=== PATIENT | male | born 1940 | race Caucasian/White ===

== ENCOUNTER 2019-11-14 10:40 | Inpatient (IN) | payer MEDICARE, OTHER ==
[~2019-11-14] VITALS: Ht 185.4 cm; Wt 89.5 kg
[2019-11-14] MEDS ORDERED: Aspir 8181 MG PO (11:34)
[2019-11-14 11:35] LABS: BASOPHILS ABSOLUTE AUTO 0.01 K/mm3 (0.00-0.23); BASOPHILS PERCENT AUTO 0 % (0-2); EOSINOPHILS PERCENT AUTO 0 % (0-6); Hematocrit 44.7 % (37.0-53.0); Hemoglobin 14.8 g/dL (13.5-17.5); IMMATURE GRAN ABSOLUTE AUTO 0.05 K/mm3 (0.00-0.10); IMMATURE GRAN PERCENT AUTO 1 % (0-1); LYMPHOCYTES ABSOLUTE AUTO 0.72 K/mm3 (0.84-5.20); LYMPHOCYTES PERCENT AUTO 10 % (21-46); MONOCYTES ABSOLUTE AUTO 0.37 K/mm3 (0.16-1.47); MONOCYTES PERCENT AUTO 5 % (4-13); Mean Corpuscular HGB 28.2 pg (26.0-34.0); Mean Corpuscular HGB Conc 33.1 g/dL (31.5-36.5); Mean Corpuscular Volume 85 fL (80-100); Mean Platelet Volume 9.4 fL (9.1-12.4); NEUTROPHILS ABSOLUTE AUTO 6.01 K/mm3 (1.96-9.15); NEUTROPHILS PERCENT AUTO 84 % (41-73); Platelet Count 203 K/mm3 (150-400); RDW Coefficient Variation 12.7 % (11.7-14.2); RDW Standard Deviation 39.8 fL (35.1-46.3); Red Blood Cell Count 5.24 M/mm3 (4.30-5.90); White Blood Cell Count 7.16 K/mm3 (4.00-11.30)
[2019-11-14] MEDS ORDERED: Isosorbide Mono30 MG PO (11:35)
[2019-11-14] MEDS ORDERED: METO50ER PO (11:35)
[2019-11-14] MEDS ORDERED: PANT40 PO (11:35)
[2019-11-14] MEDS ORDERED: LOSA50 PO (11:35)
[2019-11-14] MEDS ORDERED: AMLO5 PO (11:35)
[2019-11-14] MEDS ORDERED: EZET10 PO (11:35)
[2019-11-14 11:45] LABS: Alanine Aminotransfer (ALT/SGP 39 U/L (12-78); Albumin, Blood 2.9 g/dL (3.4-5.0); Albumin/Globulin Ratio 0.6 (0.8-1.8); Alk Phos 45 U/L (50-136); Anion Gap 8 mmol/L (6-16); Aspartate Aminotrans (AST/SGOT 53 U/L (12-37); Bilirubin, Total 0.9 mg/dL (0.1-1.0); Blood Urea Nitrogen 31 mg/dL (8-24); Bun/Creatinine Ratio 25.2 (12.0-20.0); CO2, Blood 22 mmol/L (21-32); Calcium, Blood 8.2 mg/dL (8.5-10.1); Chloride, Blood 106 mmol/L (98-108); Creatinine, Blood 1.23 mg/dL (0.60-1.20); Globulin, Blood 4.6 g/dL (2.2-4.0); Glomerular Filtration Rate >60 (60-); Glucose, Blood 116 mg/dL (70-99); Potassium, Blood 3.8 mmol/L (3.5-5.5); Sodium, Blood 136 mmol/L (136-145); Total Protein, Blood 7.5 g/dL (6.4-8.2)
[2019-11-14 11:52] LABS: International Normalized Ratio 1.07; Prothrombin Time Results 11.4 Sec (9.7-11.5)
[2019-11-14] MEDS ORDERED: FAMO20 PO (14:48)
[2019-11-14 16:19] LABS: PO2 Arterial 58.8 mmHg (80-100); pH Blood Arterial 7.44 (7.35-7.45)
--- NOTE | 2019-11-14 18:09 | NUR ---
PT ARRIVED FROM ER TO PCU 3 AT 1630. INITIALLY PT WAS ON 3LNC AND SPO2 WAS 90%. INCREASED O2 TO 4L VIA NC. PT IS A&0X4, FOLLOWS COMMANDS. PT REPORTS FEELING WEAK FOR ABOUT 10 DAYS AND HAVING AN EPISODE OF DIARRHEA THIS MORNING. PT ALSO C/O DECREASE IN APPT AND LOSS OF TASTE DURING ILLNESS. TELEMETRY SHOWS PT TO BE SINUS RHYTHM. OTHER VITALS ARE STABLE AT THIS TIME. ORIENTATION TO ROOM AND CALL LIGHT USE GONE OVER WITH PT. PT STATED UNDERSTANDING.
--- NOTE | 2019-11-14 22:30 | NUR ---
ASSUMED CARE OF PATIENT AT APPROXIMATELY 1915 FROM ANDRE Torres RN. PATIENT IN DROPLET ISOLATION FOR COVID POSISTIVE. PATIENT REPORTS TRAVELING FROM [place]. PATIENT ALERT AND ORIENTED X4; INDEPENDENT IN ROOM. PATIENT REPORTS FEELING WEAK, N/V/D AND POOR APPETITE FOR 8 DAYS. PATIENT REPORTS HE WAS ABLE TO EAT SOME DINNER; REQUESTED MORE JELLO; DRINKING FLUIDS. NSR ON TELE; OXYGEN SATURATION ABOVE 90% ON 5LPM VIA NC. PIV S/L. MED REC COMPLETED. WILL SEND URINE NEXT VOID; URINE IS CRISTINA COLORED. PATIENT CURRENTLY RESTING IN BED; CALL LIGHT IN REACH; BED IN LOWEST POSISTION; WILL CONTINUE TO MONITOR AND ASSESS UNTIL END OF SHIFT.
--- NOTE | 2019-11-14 23:35 | NUR ---
INCREASED O2 NEEDS; PATIENT OXYGEN SATURATION 87% ON 5LPM; SWITCHED TO HF NC AND INCREASED TO 10LPM. PATIENT DENIES SOB; UNABLE TO LAY IN PRONE POSISTION. WILL CONTINUE TO MONITOR AND ASSESS UNTIL END OF SHIFT.
--- NOTE | 2019-11-15 00:39 | NUR ---
ELEVATED D-DIMER AND INCREASED OXYGEN NEEDS; NOTIFIED DR. MARRERO; H&P STATES D-DIMER WAS PENDING AND NEED TO INCREASE LOVENOX DOSAGE; NO NEW ORDERS RECIEVED. ORDRES FOR AIRVO IF OXYGEN NEEDS INCREASE ABOVE 15LPM VIA HFNC; RT NOTIFIED.
--- NOTE | 2019-11-15 01:30 | NUR ---
DR. MARRERO INCREASED LOVENOX DOSAGE.
[2019-11-15 03:11] LABS: Source, Urine Clean Catch
[2019-11-15 03:14] LABS: Appearance, Urine Clear (Clear); Bilirubin, Urine Neg (Neg); Blood, Urine 2+ (Neg); Color, Urine Amber (P-Yellow); Glucose Qualitative, Urine Neg (Neg); Ketones, Urine 1+ (Neg); Leukocyte Esterase, Urine Neg (Neg); Nitrite, Urine Neg (Neg); Protein, Urine 3+ (Neg); Urobilinogen, Urine 2+ (Normal)
[2019-11-15 03:20] LABS: Amorphous Light (0-Heavy); Bacteria Few /hpf; Hyaline Casts 0-2 /lpf (0-2); Squamous Epithelial Cells Not Seen /hpf (Few); White Blood Cells, Urine 0-2 /hpf (0-5)
[2019-11-15 04:29] LABS: Hematocrit 40.6 % (37.0-53.0); Hemoglobin 13.8 g/dL (13.5-17.5); Mean Corpuscular HGB 28.6 pg (26.0-34.0); Mean Corpuscular Volume 84 fL (80-100); Mean Platelet Volume 9.1 fL (9.1-12.4); Platelet Count 214 K/mm3 (150-400); RDW Coefficient Variation 12.7 % (11.7-14.2); RDW Standard Deviation 38.9 fL (35.1-46.3); Red Blood Cell Count 4.82 M/mm3 (4.30-5.90); White Blood Cell Count 5.89 K/mm3 (4.00-11.30)
[2019-11-15 04:49] LABS: Anion Gap 5 mmol/L (6-16); Blood Urea Nitrogen 35 mg/dL (8-24); Bun/Creatinine Ratio 34.3 (12.0-20.0); CO2, Blood 23 mmol/L (21-32); Calcium, Blood 8.2 mg/dL (8.5-10.1); Chloride, Blood 107 mmol/L (98-108); Creatinine, Blood 1.02 mg/dL (0.60-1.20); Glomerular Filtration Rate >60 (60-); Glucose, Blood 138 mg/dL (70-99); Sodium, Blood 135 mmol/L (136-145)
--- NOTE | 2019-11-15 06:29 | NUR ---
NO ACUTE CHANGES TO REPORT. UA SENT. VSS. OXYGEN SATURATION ABOVE 90% ON 10LPM VIA HF NC.
[2019-11-15 16:31] LABS: Albumin, Blood 2.5 g/dL (3.4-5.0); Albumin/Globulin Ratio 0.6 (0.8-1.8); Bilirubin, Direct 0.2 mg/dL (0.0-0.3); Bilirubin, Indirect 0.4 mg/dL (0.1-0.7); Bilirubin, Total 0.6 mg/dL (0.1-1.0); Globulin, Blood 4.2 g/dL (2.2-4.0); Total Protein, Blood 6.7 g/dL (6.4-8.2)
--- NOTE | 2019-11-15 18:16 | NUR ---
SHIFT SUMMARY PT IS ALERT AND ORIENTED X4. TODAY PT REPORTS FEELING IMPROVED, NO LABORED BREATHING NOTED. AT THE BEGINNING OF SHIFT PT WAS ON 10L NC WITH LUNGS CLEAR AND DIMINISHED IN THE BASES. WAS ABLE TO WEAN PT DOWN TO 5L VIA NC AND PT HAS MAINTAINED SPO2 >90%. UPDATED DR ANDERSEN AT THIS TIME AND CURRENTLY HE IS OKAY WITH WITH LEAVING PT IN PCU. ORDERS RECEIVED FOR MODIFIED SPO2 MONITORING PARAMETERS. PT HAS AMBULATED IN ROOM AND TO CHAIR INDEPENDANTLY. TELEMETRY HAS SHOWN PT TO BE IN SINUS RHYTHM, OTHER VITALS HAVE BEEN STABLE, EXCEPT WERE NOTED.
--- NOTE | 2019-11-15 22:39 | NUR ---
ASSUMED CARE AT 1900. COVID + . ALL PRECAUTIONS TAKEN W/ ALL STAFF. DENIES ANY PAIN. BREATHING EASY , REGULAR , AT REST . STILL NOTING 87% WHEN TALKING AT REST. REMINDED TO LYE PRONE AND AGREES HE WILL FOLLOW THESE INSTRUCTIONS.LEFT AT 5L HIGH FLOW, TO AVERAGE SAT 87-93. HAS NOT OBSERVED WHEN ASLEEP AT THIS TIME. ALARMS SET AT 87%. STAFF OUTSIDE CLOSED DOOR AND NOTED ALARM GOING OFF OCCASIONALLY. STAFF COULD NOT PLACE ISOLATION EQUIPTMENT ON FAST ENOUGH BEFORE NO FURTHER ALARM.
--- NOTE | 2019-11-15 23:27 | NUR ---
REFUSES TO LYE PRONE TONIGHT. DESCRIBES IN AN EFFORT TO KEEP THE OXIMETRY FROM ALARMING, HE TAKES A VERY DEEP BREATH AND HE DESCRIBES A BURNING ACROSS MID CHEST, THAT SUBSIDES QUICKLY WHEN EXHALES , PLACED HIGH FLOW TO 6 L. WHILE TALKING, ON 6L SAT 91%. NO SLEEPING YET.REFUSES SLEEPING MED
[2019-11-16 04:13] LABS: BASOPHILS ABSOLUTE AUTO 0.01 K/mm3 (0.00-0.23); BASOPHILS PERCENT AUTO 0 % (0-2); EOSINOPHILS PERCENT AUTO 0 % (0-6); Hematocrit 39.7 % (37.0-53.0); Hemoglobin 13.5 g/dL (13.5-17.5); IMMATURE GRAN ABSOLUTE AUTO 0.05 K/mm3 (0.00-0.10); IMMATURE GRAN PERCENT AUTO 0 % (0-1); LYMPHOCYTES ABSOLUTE AUTO 0.84 K/mm3 (0.84-5.20); LYMPHOCYTES PERCENT AUTO 8 % (21-46); MONOCYTES ABSOLUTE AUTO 0.56 K/mm3 (0.16-1.47); MONOCYTES PERCENT AUTO 5 % (4-13); Mean Corpuscular HGB 28.5 pg (26.0-34.0); Mean Corpuscular Volume 84 fL (80-100); Mean Platelet Volume 9.5 fL (9.1-12.4); NEUTROPHILS ABSOLUTE AUTO 9.75 K/mm3 (1.96-9.15); NEUTROPHILS PERCENT AUTO 87 % (41-73); Platelet Count 272 K/mm3 (150-400); RDW Coefficient Variation 12.7 % (11.7-14.2); RDW Standard Deviation 39.1 fL (35.1-46.3); Red Blood Cell Count 4.73 M/mm3 (4.30-5.90); White Blood Cell Count 11.21 K/mm3 (4.00-11.30)
[2019-11-16 04:47] LABS: Albumin, Blood 2.6 g/dL (3.4-5.0); Albumin/Globulin Ratio 0.6 (0.8-1.8); Bilirubin, Direct 0.2 mg/dL (0.0-0.3); Bilirubin, Indirect 0.3 mg/dL (0.1-0.7); Bilirubin, Total 0.5 mg/dL (0.1-1.0); Bun/Creatinine Ratio 36.1 (12.0-20.0); Calcium, Blood 8.5 mg/dL (8.5-10.1); Creatinine, Blood 1.33 mg/dL (0.60-1.20); Globulin, Blood 4.1 g/dL (2.2-4.0); Potassium, Blood 3.8 mmol/L (3.5-5.5); Total Protein, Blood 6.7 g/dL (6.4-8.2)
[2019-11-16 04:56] LABS: D-Dimer, Quantitative 0.79 mg/L FEU (0.00-0.52); International Normalized Ratio 1.01; Prothrombin Time Results 10.8 Sec (9.7-11.5)
--- NOTE | 2019-11-16 05:09 | NUR ---
SHIFT SUMMARY. SLEPT PRONE 1 HOUR . NO ACUTE PAIN REPORTED ONLY REPORTED BEFORE. AND DEEP BREATHING ENCOURAGED. ALOT OF SNORING WHEN ASLEEP. NOTED SAT COULD DIP TO 83%. HIGH FLOW IMCREASED TO 6L SINCE MID NOC, THEN INCREASED TO 7L AT 0400, POST ALL THE EFFORT TO RETURN FROM PRONE POSTION.OFF TO SLEEP QUICKLY AND MAJOR SNORING IN SEMI FOWLERS POSITION. FREQ CHECKS NOTED 85%. FLUIDS ENC AND NO HS SNACK DESIRED LAST NOC. STANDS AT BEDSIDE TO VOID, AND DID NOT NOTICE SOB. FELT EXHAUSTED AND SOB WHEN RETURN FROM PRONE POSITION. SR/SB ALL NOC
[2019-11-16 05:31] LABS: C-Reactive Protein, High Sens. 91.3 mg/L (0.000-3.000)
--- NOTE | 2019-11-16 18:00 | NUR ---
SHIFT SUMMARY PT IS ALERT AND ORIENTx4, REMAINS IN ENHANCED ISOLATION PRECAUTIONS. PT HAS TOLERATED BETWEEN 4-7L OXYGEN DEPENDANT ON ACTIVITY. THIS MORNING PT REQUESTED SHOWER AND REQUIRED ADDITIONAL OXYGEN TO RECOVER FROM ACTIVITY, ONCE AT REST PT WAS ABLE TO DECREASE OXYGEN NEEDS. TELEMETRY HAS SHOWN PT TO BE IN SINUS RHYTHM AND OTHER VITALS HAVE REMAINED STABLE TODAY. PHARMACY REPORTED TO DR ALCARAZ AND RN THAT REMDESIVIR IS CURRENTLY NOT AVAILABLE. THEY ARE ACTIVITY LOOKING FOR AVAILABLE STOCK AT OTHER HOSPITALS.
--- NOTE | 2019-11-17 03:47 | NUR ---
ASSUMED CARE AT 1999. REPORTS MILD BURNING OF CHEST WHEN DEEP INSRIRATION. FEW BIBASILAR CRACKLES. DRY COUGH , NON PRODUCTIVE, WITH THIS EFFORT. STILL CONT TO REPORT HE DOES NOT FEEL SOB WHEN STANDING TO VOID. DESATS QUICKLY TO 80-85% , WITH THIS EXERTIONAL ACTIVITY. DAY , DR GIBBONS INSTRUCTED PT TO INCREASE O2 FLOW A CCOUPLE OF LITERS AND HOW TO DO THIS , WHEM HE STANDS TO VOID. PT SAYS HE IS DOING THIS , BUT STILL TAKES A FEW MINUTES TO RECOVER TO IMPROVE SATS AND AWARE TO TAKE DEEP BREATHS TO IMPROVE QUICKER. KEPT AT 6L HIGH FLOW WHEN HE IS AWAKE OR ASLEEP. MUCH SNORING WHEN SLEEPING SOUNDLY AND L6 STILL SUSTAINS SAT 84-94%. WORSE DROP IN SAT WAS WHEN OOB TO BATHROOM TO TRY TO HAVE A BM FOR ABOUT 10 MINUTES. HAD TO INCREASE HIGH FLOW TO 10L TO RECOVER. DENIES PAIN OR SOB ISSUES. RELAXING AND DEEP BREATHING AND TRYING TO FALL BACK TO SLEEP POST BLOOD DRAW AT 0430
[2019-11-17 04:48] LABS: BASOPHILS ABSOLUTE AUTO 0.01 K/mm3 (0.00-0.23); BASOPHILS PERCENT AUTO 0 % (0-2); EOSINOPHILS ABSOLUTE AUTO 0.01 K/mm3 (0.00-0.68); EOSINOPHILS PERCENT AUTO 0 % (0-6); Hematocrit 40.2 % (37.0-53.0); Hemoglobin 13.4 g/dL (13.5-17.5); IMMATURE GRAN ABSOLUTE AUTO 0.15 K/mm3 (0.00-0.10); IMMATURE GRAN PERCENT AUTO 2 % (0-1); LYMPHOCYTES PERCENT AUTO 7 % (21-46); MONOCYTES PERCENT AUTO 4 % (4-13); Mean Corpuscular HGB Conc 33.3 g/dL (31.5-36.5); Mean Corpuscular Volume 84 fL (80-100); Mean Platelet Volume 9.3 fL (9.1-12.4); NEUTROPHILS ABSOLUTE AUTO 8.72 K/mm3 (1.96-9.15); NEUTROPHILS PERCENT AUTO 87 % (41-73); Platelet Count 291 K/mm3 (150-400); RDW Coefficient Variation 12.6 % (11.7-14.2); RDW Standard Deviation 38.7 fL (35.1-46.3); Red Blood Cell Count 4.79 M/mm3 (4.30-5.90); White Blood Cell Count 9.99 K/mm3 (4.00-11.30)
[2019-11-17 05:14] LABS: Alanine Aminotransfer (ALT/SGP 68 U/L (12-78); Albumin, Blood 2.7 g/dL (3.4-5.0); Albumin/Globulin Ratio 0.7 (0.8-1.8); Alk Phos 41 U/L (50-136); Anion Gap 6 mmol/L (6-16); Aspartate Aminotrans (AST/SGOT 40 U/L (12-37); Bilirubin, Total 0.6 mg/dL (0.1-1.0); Blood Urea Nitrogen 37 mg/dL (8-24); Bun/Creatinine Ratio 34.3 (12.0-20.0); CO2, Blood 25 mmol/L (21-32); CPK Creatine Kinase 81 U/L (39-308); Calcium, Blood 8.2 mg/dL (8.5-10.1); Chloride, Blood 108 mmol/L (98-108); Creatinine, Blood 1.08 mg/dL (0.60-1.20); Glomerular Filtration Rate >60 (60-); Glucose, Blood 110 mg/dL (70-99); Potassium, Blood 4.1 mmol/L (3.5-5.5); Sodium, Blood 139 mmol/L (136-145); Total Protein, Blood 6.7 g/dL (6.4-8.2)
--- NOTE | 2019-11-17 06:00 | NUR ---
SHIFT SUMMARY. ONCE AGAIN GOT UP TO BR WHILE STAFF NOT AWARE AND TRIED TO HAVE A BM FOR ABOUT 10 MIN AGAIN. MAY HAVE NOT TURNED UP LITER FLOW UP FROM 6L. QUICKLY TURNED UP TO 11 L TO KEEP SATS UP , AND SLOW TO RECOVER. INSTRUCTED NOT TO EVER GET UP AGAIN W/O NOTIFYING STAFF. BED ALARM ON. SEEMS SOB , THIS TIME, AND HAD NOT NOTICED THIS THE LAST TIME HE GOT UP TO BR. WILL USE BSC NEXT TIME. FALLS OFF TO SLEEP
--- NOTE | 2019-11-17 07:00 | NUR ---
ASSUMED CARE: NIGHT RN AT BEDSIDE AFTER O2 SAT MONITOR ALARMING WHEN PT AMBULATED TO RESTROOM. STATES NO FURTHER NEEDS OR CONCERNS AT THIS TIME.
--- NOTE | 2019-11-17 11:00 | NUR ---
DR DENIS CAME TO SEE PT. AWARE THAT HE IS CURRENTLY ON 8L BUT WAS REQUIRING 11 THIS AM WITH ACTIVITY. ORDERS TO USE HI FLOW NC MUCH POSSIBLE BEFORE SWITCHING TO AIRVO.
--- NOTE | 2019-11-17 16:00 | NUR ---
DR DENIS WANTED TO MOVE PT TO ICU SO THAT HE COULD BE IN ROOM WITH MORE VISIBILITY FOR O2 SAT MONITORING. REPORT GIVEN TO VANNESSA CODY. TRANSFERRED VIA WHEEL CHAIR AND CALL TO PT'S DAUGHTER TO UPDATE HER OF TRANSFER.
--- NOTE | 2019-11-17 16:00 | NUR ---
PT TRANSFERED TO ICU 9 FROM PCU. PT IS PCU STATUS JUST NEEDS CONTINUOUS OXIMETRY BY ICU MONITOR. PT STATES HIS SOB IS "OK" AT THE MOMENT. WAS WHEELED OVER VIA W/C. ABLE TO STAND AND PIVOT TO BED WITHOUT DIFFICULTY. SPO2 93-95% ON 10L HFNC. HAS URINAL AND CALL LIGHT IN REACH. PT DEMONSTRATES PROPPER USE. NO SIGN OF DISTRESS.
[2019-11-17 16:57] LABS: Albumin, Blood 2.7 g/dL (3.4-5.0); Albumin/Globulin Ratio 0.7 (0.8-1.8); Bilirubin, Direct 0.3 mg/dL (0.0-0.3); Bilirubin, Indirect 0.4 mg/dL (0.1-0.7); Bilirubin, Total 0.7 mg/dL (0.1-1.0); Globulin, Blood 3.9 g/dL (2.2-4.0); Total Protein, Blood 6.6 g/dL (6.4-8.2)
[2019-11-18 04:09] LABS: BASOPHILS ABSOLUTE AUTO 0.01 K/mm3 (0.00-0.23); BASOPHILS PERCENT AUTO 0 % (0-2); EOSINOPHILS ABSOLUTE AUTO 0.03 K/mm3 (0.00-0.68); EOSINOPHILS PERCENT AUTO 0 % (0-6); Hematocrit 38.2 % (37.0-53.0); Hemoglobin 12.9 g/dL (13.5-17.5); IMMATURE GRAN ABSOLUTE AUTO 0.17 K/mm3 (0.00-0.10); IMMATURE GRAN PERCENT AUTO 2 % (0-1); LYMPHOCYTES ABSOLUTE AUTO 0.66 K/mm3 (0.84-5.20); LYMPHOCYTES PERCENT AUTO 7 % (21-46); MONOCYTES PERCENT AUTO 3 % (4-13); Mean Corpuscular HGB 28.3 pg (26.0-34.0); Mean Corpuscular HGB Conc 33.8 g/dL (31.5-36.5); Mean Corpuscular Volume 84 fL (80-100); Mean Platelet Volume 9.1 fL (9.1-12.4); NEUTROPHILS ABSOLUTE AUTO 8.31 K/mm3 (1.96-9.15); NEUTROPHILS PERCENT AUTO 88 % (41-73); Platelet Count 255 K/mm3 (150-400); RDW Coefficient Variation 12.9 % (11.7-14.2); RDW Standard Deviation 38.8 fL (35.1-46.3); Red Blood Cell Count 4.56 M/mm3 (4.30-5.90); White Blood Cell Count 9.48 K/mm3 (4.00-11.30)
[2019-11-18 04:31] LABS: Anion Gap 5 mmol/L (6-16); Blood Urea Nitrogen 33 mg/dL (8-24); Bun/Creatinine Ratio 28.2 (12.0-20.0); CO2, Blood 25 mmol/L (21-32); CPK Creatine Kinase 52 U/L (39-308); Calcium, Blood 8.2 mg/dL (8.5-10.1); Chloride, Blood 109 mmol/L (98-108); Creatinine, Blood 1.17 mg/dL (0.60-1.20); Glomerular Filtration Rate >60 (60-); Glucose, Blood 121 mg/dL (70-99); Lactate Dehydrogenase (Ld),Bld 420 U/L (100-240); Potassium, Blood 4.4 mmol/L (3.5-5.5); Sodium, Blood 139 mmol/L (136-145)
[2019-11-18 04:37] LABS: D-Dimer, Quantitative 1.83 mg/L FEU (0.00-0.52); International Normalized Ratio 1.05; Prothrombin Time Results 11.2 Sec (9.7-11.5)
--- NOTE | 2019-11-18 09:20 | NUR ---
PT REQUIRING MORE OXYGEN THIS AM. ANYTIME HE EXERTS HIMSELF SPO2 DROPS TO LOW 80'S AND HAS DIFFICULTY RECOVERING. PT DOES NOT SEEM SEVERELY DISTRESSED WHEN SPO2 DROPS TO THE 80'S. HE WILL JUST SIT IN BED AND RELAX AND TRY TO RECOVER. TURNED O2 UP TO 14L. CALLED DR. BURT THIS AM AT 0835, HE ORDERED AIRVO. RT GOT PT SETUP WITH AIRVO, 20L FIO2 71%. SPO2 IS NOW 93%.
[2019-11-18 14:46] LABS: Albumin, Blood 2.3 g/dL (3.4-5.0); Albumin/Globulin Ratio 0.6 (0.8-1.8); Bilirubin, Direct 0.2 mg/dL (0.0-0.3); Bilirubin, Indirect 0.5 mg/dL (0.1-0.7); Bilirubin, Total 0.7 mg/dL (0.1-1.0); Total Protein, Blood 6.3 g/dL (6.4-8.2)
--- NOTE | 2019-11-18 19:19 | NUR ---
SUMMARY PT REMAINS IN ICU PCU STATUS. PROGRESSED FROM HFNC TO AIRVO WITH LOW FLOW EARLY THIS AM. PT HAS DONE WELL ON THE AIRVO. IT DOES NOT TAKE MUCH TIME OR EFFORT FROM THE PT TO RECOVER AFTER EXERTION. SPO2 WILL DROP TO 85% WITH EXERTION ON AIRVO 20L WITH FIO2 65%. HAVE BEEN ENCOURAGING PT TO SELF PRONE. PT HAS SELF PRONED 3X TODAY ALL ABOUT 25 MINUTES A PIECE. PT DOES NOT TOLERATE LAYING ON BED BUT WILL USE HIS BEDSIDE TABLE TO LEAN OVER FAR POSSIBLE. HAD A TMAX OF 101.4 TODAY. TYLENOL WAS GIVEN AND RESOLVED FEVER. HTN TODAY. ONE DOSE OF PRN HYDRALAZINE IN COMBINATION WITH AM BP MEDS WORKED WELL. DR. BURT WANTS PT ON CPAP TONIGHT PRN FOR LOW SPO2 THAT CANNOT BE RESOLVED WITH AIRVO. DAUGHTERS HAVE CALLED AND BEEN UPDATED THROUGHOUT THE DAY. NO SIGN OF DISTRESS AT THE MOMENT.
--- NOTE | 2019-11-18 20:00 | NUR ---
ASSUMED CARE NOTE: ASSUMED CARE OF PT AT 1900, RECEVIED REPORT FROM ESCOBAR HURD. PT IS A/OX3. PT ON AIRVO 20L AND FiO2 AT 53%, SPO2 93% PT DENIES ANY SOB AT THIS TIME. PT DESATURATES TO 85% SPO2 WITH ACTIVITY AND TAKES LITTLE TIME TO RECOVER. PT IS IN NSR WITH HR IN THE 60'S, PT DENIES ANY CHEST PAIN. PT DENIES HEADACHE. BT HEARD IN ALL FOUR QUADRANTS. ABDOMEN DISTENDED, PT STATES IT IS NORMAL. PT C/O CONSTIPATION. REFUSES STOOL SOFTNERS AT THIS TIME. STRONG PULSES FELT BILAT TO RADIAL AND PEDAL SITES. PT USES URINAL AT BEDSIDE, CRISTINA COLORED URINE. PT STS HE DOES NOT WANT TO USE CPAP TONIGHT. PT HYPERTENSIVE, WILL GIVE PRN BP MEDS IF NEEDED. WILL CONTINUE TO MONITOR PT T/O SHIFT.
--- NOTE | 2019-11-18 22:44 | NUR ---
UPDATE: FLUSHED IV AFTER REMDESIVIR MED WAS COMPLETED , WITH 30ML OF NS FLUSHES ORDERED.
--- NOTE | 2019-11-19 04:00 | NUR ---
UPDATE: PT UP TO USE URINAL AT BEDSIDE, SPO2 DROPPED TO 74%, TURNED FIO2 ON AIRVO AT 75% PT SLOW TO RECOVER, RR AT 34 BREATHS PER MIN. PT HAS BEEN SNORING ALL NIGHT, REFUSED CPAP MACHINE, DESPITE PT EDUCATION.
[2019-11-19 04:04] LABS: BASOPHILS ABSOLUTE AUTO 0.04 K/mm3 (0.00-0.23); BASOPHILS PERCENT AUTO 0 % (0-2); EOSINOPHILS ABSOLUTE AUTO 0.05 K/mm3 (0.00-0.68); EOSINOPHILS PERCENT AUTO 0 % (0-6); Hematocrit 43.5 % (37.0-53.0); Hemoglobin 14.9 g/dL (13.5-17.5); IMMATURE GRAN ABSOLUTE AUTO 0.33 K/mm3 (0.00-0.10); IMMATURE GRAN PERCENT AUTO 2 % (0-1); LYMPHOCYTES ABSOLUTE AUTO 1.02 K/mm3 (0.84-5.20); LYMPHOCYTES PERCENT AUTO 7 % (21-46); MONOCYTES ABSOLUTE AUTO 0.49 K/mm3 (0.16-1.47); MONOCYTES PERCENT AUTO 3 % (4-13); Mean Corpuscular HGB 28.6 pg (26.0-34.0); Mean Corpuscular HGB Conc 34.3 g/dL (31.5-36.5); Mean Corpuscular Volume 84 fL (80-100); Mean Platelet Volume 9.1 fL (9.1-12.4); NEUTROPHILS ABSOLUTE AUTO 12.63 K/mm3 (1.96-9.15); NEUTROPHILS PERCENT AUTO 87 % (41-73); Platelet Count 371 K/mm3 (150-400); RDW Coefficient Variation 12.9 % (11.7-14.2); RDW Standard Deviation 39.4 fL (35.1-46.3); Red Blood Cell Count 5.21 M/mm3 (4.30-5.90); White Blood Cell Count 14.56 K/mm3 (4.00-11.30)
[2019-11-19 04:26] LABS: Bun/Creatinine Ratio 27.8 (12.0-20.0); Calcium, Blood 8.5 mg/dL (8.5-10.1); Creatinine, Blood 1.33 mg/dL (0.60-1.20); Potassium, Blood 4.1 mmol/L (3.5-5.5)
--- NOTE | 2019-11-19 06:26 | NUR ---
SHIFT SUMMARY: PT REMAINS ON AIRVO WITH FiO2 AT 60% SPO2 MAINTAINING AT 85-92% PT DENIES SOB, HOWEVER, HE DESATS INTO THE HIGH 70'S WITH ACTIVITY. PT HAS OCCASSIONAL NON-PRODUCTIVE COUGH. PT REFUSED TO USE CPAP ALL NIGHT. STS HE DID NOT LIKE THE MASK ON HIS FACE. PT IN SR WITH HR IN THE 70'S. PT HAS BEEN HYPERTENSIVE, PRN HYDRALIZINE GIVEN PER EMAR. PT HAS BEEN USING URINAL AT BEDSIDE, CRISTINA COLORED URINE NOTED. NO BM THIS SHIFT. WILL CONTINUE TO MONITOR PT UNTIL REPORT IS GIVEN TO ON COMING SHIFT.
--- NOTE | 2019-11-19 08:00 | NUR ---
BEGINNING OF SHIFT Assumed care at 0700. Bedside report received from Randee HURD. Pt PCU status. A&O x 4. States he is feeling like he slept too hard. States he would like to contiune to rest this morning. Pt states concern about not having a bowel movmement for several days. Would like to take miralax later this afternoon. Pt agreeable to getting up in chair for lunch time. On assessment pt is A&O x 4. Answers questions. Follows commands. Verbalizes needs. Pt on AirVO with 20 LPM and 55% FiO2. Lungs have fine bibasilar crackles. SR per monitor. BP stable. Repositions independenly in bed. Voids into urinal.
--- NOTE | 2019-11-19 09:00 | NUR ---
DR BORGES IN TO SEE PT Discussed potential for PT/OT. No new orders at this time. Plans for pt to mobilize with nursing staff at this time.
--- NOTE | 2019-11-19 14:22 | NUR ---
Pt has been sitting up in chair since lunch time. Independently mobilzes between chair and toilet. Pt tolerating activity well. Remains on AirVO with 20 LPM and 55% FiO2.
[2019-11-19 15:47] LABS: Albumin, Blood 2.4 g/dL (3.4-5.0); Albumin/Globulin Ratio 0.6 (0.8-1.8); Bilirubin, Direct 0.3 mg/dL (0.0-0.3); Bilirubin, Indirect 0.5 mg/dL (0.1-0.7); Bilirubin, Total 0.8 mg/dL (0.1-1.0); Globulin, Blood 4.2 g/dL (2.2-4.0); Total Protein, Blood 6.6 g/dL (6.4-8.2)
--- NOTE | 2019-11-19 17:39 | NUR ---
No acute changes to initial assessment. Pt remains on AirVO with 20 LPM and 54% FiO2. Pt independent to reposition in bed, including sitting up on edge of bed to use urinal. Pt up in chair for 3 hours today. Refused to self-prone. Pt had BM today, that was normal for him. Pt skipped breakfast and lunch but is eating dinner at this time. Will continue to closely monitor pt until care handoff and bedside report with oncoming RN.
--- NOTE | 2019-11-19 19:05 | NUR ---
REPORTED OFF TO VANNESSA SINGLETARY WHOM IS NOW ASSUMING CARE OF THIS PT.
--- NOTE | 2019-11-19 19:30 | NUR ---
ASSUMED CARE NOTE: ASSUMED CARE OF PT AT 1930, RECEVIED REPORT FROM PEYTON HURD. PT IS A/OX4, ABLE TO ANSWER QUESTIONS APPROPRIATLY. PT STS HE FEELS MUCH BETTER TODAY THAN YESTERDAY. PT STS HE IS SOB WHEN HE GETS UP TO THE CHAIR, OR WHEN MOVING AROUND. HE DENIES ANY CP/HEADACHE/NAUSEA AT THIS TIME. PT STS HE FEELS WEAK, BUT IS MORE MOTIVATED TO MOVE AROUND TODAY THAN YESTERDAY. HE ALSO STS THAT HE DOES NOT WANT TO PRONE TONIGHT, ALSO ADMITS THAT HE HAS NOT PRONED ALL DAY BECAUSE IT IS UNCOMFORTABLE. PT WAS EDUCATED ON THE BENIFITS OF PRONING AND HOW IT CAN IMPROVE HIS OXYGENATION. HE DECLINED TO USE THE CPAP FOR TONIGHT. HE IS CURRENTLY ON THE AIRVO ON 20L AND FiO2 AT 55%, SPO2 AT 92% PT IS IN SINUS RYTHYM WITH HR IN THE 70'S. BOWEL TONES HEARD IN ALL FOUR QUADRANTS, NON-TENDER TO PALPATION. SEE SHIFT ASSESSMENT FOR FULL ASSESSMENT. WILL CONTINUE TO MONITOR PT T/O SHIFT. BED AT LOWEST LEVEL, CALL LIGHT WITHIN REACH.
[2019-11-20 03:42] LABS: BASOPHILS ABSOLUTE AUTO 0.01 K/mm3 (0.00-0.23); BASOPHILS PERCENT AUTO 0 % (0-2); EOSINOPHILS ABSOLUTE AUTO 0.03 K/mm3 (0.00-0.68); EOSINOPHILS PERCENT AUTO 0 % (0-6); Hematocrit 38.9 % (37.0-53.0); Hemoglobin 13.2 g/dL (13.5-17.5); IMMATURE GRAN ABSOLUTE AUTO 0.24 K/mm3 (0.00-0.10); IMMATURE GRAN PERCENT AUTO 2 % (0-1); LYMPHOCYTES ABSOLUTE AUTO 0.54 K/mm3 (0.84-5.20); LYMPHOCYTES PERCENT AUTO 5 % (21-46); MONOCYTES PERCENT AUTO 5 % (4-13); Mean Corpuscular HGB 28.4 pg (26.0-34.0); Mean Corpuscular HGB Conc 33.9 g/dL (31.5-36.5); Mean Corpuscular Volume 84 fL (80-100); Mean Platelet Volume 8.8 fL (9.1-12.4); NEUTROPHILS ABSOLUTE AUTO 8.95 K/mm3 (1.96-9.15); NEUTROPHILS PERCENT AUTO 87 % (41-73); Platelet Count 356 K/mm3 (150-400); RDW Coefficient Variation 13.1 % (11.7-14.2); RDW Standard Deviation 39.8 fL (35.1-46.3); Red Blood Cell Count 4.65 M/mm3 (4.30-5.90); White Blood Cell Count 10.27 K/mm3 (4.00-11.30)
[2019-11-20 03:58] LABS: Calcium, Blood 7.5 mg/dL (8.5-10.1); Creatinine, Blood 1.47 mg/dL (0.60-1.20); Potassium, Blood 4.2 mmol/L (3.5-5.5)
--- NOTE | 2019-11-20 06:02 | NUR ---
SHIFT SUMMARY: NO SIGNIFICANT CHANGES. PT CONTINUES TO BE ON AIRVO 20L AND FiO2 OF 50%, SPO2 ABOVE 90% PT CONTINUES TO DESATURATE TO 75% WITH ACTIVITY, HOWEVER, RECOVERS WITHIN 5 MINTUES. PT HAS REMAINED IN NSR WITH HR IN THE 60'S. PT HAS BEEN HYPERTENSIVE, PRN HYDRALYZINE GIVEN PER EMAR. PT HAS BEEN AFEBRILE T/O SHIFT. PT USED URINAL AT BEDSIDE T/O SHIFT, CRISTINA COLORED URINE. PT HAS BEEN ABLE TO RESPOSITION SELF T/O SHIFT. ORAL CARE PROVIDED. WILL CONTINUE TO MONITOR PT UNTIL REPORT IS GIVEN TO ONCOMING SHIFT.
--- NOTE | 2019-11-20 07:15 | NUR ---
Assumed care at 0700 from Randee HURD. Pt A&O x 4. Answers questions, follows commands, verbalizes needs. Independent in room to use urinal. Pt on AirVo with 20 LPM and 50% FiO2. SpO2 90% or greater. Per respiratory care, pt may be switched to high flow NC. SR per monitor. BP stable. Pt PCU status.
--- NOTE | 2019-11-20 10:00 | NUR ---
Dr Wolf in to see pt. Plan of care discussed. Per provider, pt may be medical floor status with telemetry. Discussed ordering PT/OT. Plans for pt to mobilize with nursing staff at this time.
--- NOTE | 2019-11-20 11:00 | NUR ---
Dr Schneider in to see pt. Pt currently on high flow NC with 10 LPM. Provider states he would like pt placed back on AirVO, as he expects patient will require supplemental O2 for an extended period of time and AirVO is the more comfortable option. RT Chavez notified. Discussed that pt does not like to self-prone. Self-proning discontinued as pt has been refusing.
[2019-11-20 14:20] LABS: Albumin, Blood 2.2 g/dL (3.4-5.0); Albumin/Globulin Ratio 0.6 (0.8-1.8); Bilirubin, Direct 0.3 mg/dL (0.0-0.3); Bilirubin, Indirect 0.5 mg/dL (0.1-0.7); Bilirubin, Total 0.8 mg/dL (0.1-1.0); Total Protein, Blood 6.2 g/dL (6.4-8.2)
--- NOTE | 2019-11-20 17:51 | NUR ---
SUMMARY No acute changes to initial assessment. Pt OOB several times today to use toilet independently. Pt sat up in chair for about one hour today to bathe self. Pt tolerating activity much better than noted during previous day shift. Pt maintaining SpO2 90% or greater with 20 LPM and 50% FiO2 AirVO. Recovers quickly, within 10-15 seconds, if desaturation happens with activity. SR per monitor. BP stable. Will continue to closely monitor until care handoff and bedside report with oncoming RN.
--- NOTE | 2019-11-20 19:31 | NUR ---
ASSUMED CARE NOTE: ASSUMED CARE OF PT AT 1900, RECEVIED REPORT FROM DANNA HURD. PT IS ALERT AND ORIENTEDX4. PT IS ON AIRVO, SETTINGS: 20L AND FiO2 OF 50%, SPO2 AT 92% AT THIS TIME. PT IN NSR WITH HR IN THE 60'S. PT DENIES ANY SOB, CP, NAUSEA, AT THIS TIME. BT HEARD IN ALL FOUR QUADRANTS, SOFT AND NON-TENDER TO PALPATION. PT CONTINUES TO USE URINAL AT BEDSIDE. CALLS APPROPRIATLY. VITALS STABLE, AFEBRILE. WILL CONTINUE TO MONITOR PT T/O SHIFT. BED AT LOWEST LEVEL, CALL LIGHT WITHIN REACH.
--- NOTE | 2019-11-20 20:09 | NUR ---
GAVE REPORT TO CRISTÓBAL HURD, WHO WILL BE TAKING OVER PATINET CARE AT THIS TIME.
--- NOTE | 2019-11-20 22:24 | NUR ---
11/19 @ 21:00 TOOK OVER CARE OF PATIENT FROM VANNESSA SINGLETARY. AGREE WITH PREVIOUS SHIFT ASSESSMENT. PATIENT DOES NOT COMPLAIN OF SHORTNESS OF BREATH AT THIS TIME, GETS UP AT BEDSIDE ON OWN TO URINATE, TURNS SELF FREQUENTLY IN BED SIDE TO SIDE. NO C/O PAIN. VSS. WILL CONTINUE TO MONITOR.
[2019-11-21 04:03] LABS: BASOPHILS ABSOLUTE AUTO 0.01 K/mm3 (0.00-0.23); BASOPHILS PERCENT AUTO 0 % (0-2); EOSINOPHILS ABSOLUTE AUTO 0.02 K/mm3 (0.00-0.68); EOSINOPHILS PERCENT AUTO 0 % (0-6); Hematocrit 38.3 % (37.0-53.0); Hemoglobin 12.5 g/dL (13.5-17.5); IMMATURE GRAN ABSOLUTE AUTO 0.14 K/mm3 (0.00-0.10); IMMATURE GRAN PERCENT AUTO 2 % (0-1); LYMPHOCYTES ABSOLUTE AUTO 0.44 K/mm3 (0.84-5.20); LYMPHOCYTES PERCENT AUTO 5 % (21-46); MONOCYTES ABSOLUTE AUTO 0.54 K/mm3 (0.16-1.47); MONOCYTES PERCENT AUTO 6 % (4-13); Mean Corpuscular HGB 27.9 pg (26.0-34.0); Mean Corpuscular HGB Conc 32.6 g/dL (31.5-36.5); Mean Corpuscular Volume 86 fL (80-100); Mean Platelet Volume 9.2 fL (9.1-12.4); NEUTROPHILS PERCENT AUTO 87 % (41-73); Platelet Count 367 K/mm3 (150-400); RDW Coefficient Variation 13.2 % (11.7-14.2); RDW Standard Deviation 41.2 fL (35.1-46.3); Red Blood Cell Count 4.48 M/mm3 (4.30-5.90); White Blood Cell Count 8.85 K/mm3 (4.00-11.30)
[2019-11-21 04:21] LABS: Albumin, Blood 2.1 g/dL (3.4-5.0); Albumin/Globulin Ratio 0.5 (0.8-1.8); Bilirubin, Total 0.5 mg/dL (0.1-1.0); Bun/Creatinine Ratio 34.8 (12.0-20.0); Calcium, Blood 8.1 mg/dL (8.5-10.1); Creatinine, Blood 1.38 mg/dL (0.60-1.20); Magnesium, Blood 2.3 mg/dL (1.6-2.4); Potassium, Blood 4.2 mmol/L (3.5-5.5); Total Protein, Blood 6.1 g/dL (6.4-8.2)
--- NOTE | 2019-11-21 05:25 | NUR ---
SHIFT SUMMARY PATIENT SLEPT WELL THROUGH NIGHT. WOKE UP A COUPLE OF TIMES WANTING TO GET UP INTO THE SHOWER, HAD TO REMIND HIM THAT HE IS TOO WEAK TO GET UP AND WE DO NOT HAVE STAFF TO AMBULATE HIM HE IS WISHING, AFTER REDIRECTION AGREES TO WAIT UNTIL DAYSHIFT TO POTENTIALLY GET TO SHOWER. PT. FULLY ORIENTED, MILDLY DISGRUNTLED WITH HOW MUCH HE HAS DECONDITIONED IN LAST COUPLE OF DAYS. ONLY ETOH WITHDRAWL SYMPTOM LEFT TO NOTE IS A MILD TREMOR WHEN SITTING UP. VSS. NO C/O PAIN. ASSESSMENT IS CHARTED. WILL CONTINUE TO MONITOR.
--- NOTE | 2019-11-21 05:30 | NUR ---
SHIFT SUMMARY PATIENT SLEPT WELL THROUGH NIGHT. HAD A COUPLE OF EPISODES WHERE WOULD DESATURATE DUE TO SLEEP APNEA, RECOVERS QUICKLY FROM ~ 85 TO 93%. WHEN GETTING UP TO URINATE, PT. DESATURATED TO ~ 82%, TOOK A COUPLE OF MINUTES TO RECOVER. NO FURTHER CHANGES TO NOTE. ASSESSMENT IS CHARTED. VSS. NO C/O PAIN. WILL CONTINUE TO MONITOR.
--- NOTE | 2019-11-21 08:08 | NUR ---
ASSUMED CARE RECEIVED REPORT FROM VANNESSA HIGGINBOTHAM. PT IS LYING IN BED AWAKE, ALERT AND ORIENTED X 4. HE IS ON THE AIRVO 65% FIO2, 25L - SATS AT REST ARE LOW 90s. HE IS IN SINUS RHYTHM WITH STABLE VITALS. BED LOW AND LOCKED. CALL LIGHT WITHIN REACH
[2019-11-21 14:26] LABS: Albumin, Blood 2.1 g/dL (3.4-5.0); Albumin/Globulin Ratio 0.6 (0.8-1.8); Bilirubin, Direct 0.3 mg/dL (0.0-0.3); Bilirubin, Indirect 0.2 mg/dL (0.1-0.7); Bilirubin, Total 0.5 mg/dL (0.1-1.0); Globulin, Blood 3.7 g/dL (2.2-4.0); Total Protein, Blood 5.8 g/dL (6.4-8.2)
--- NOTE | 2019-11-21 17:01 | NUR ---
SHIFT SUMMARY NO ACUTE EVENTS TODAY. REMAINS DYSPNEIC WITH EXERTION, BUT RECOVERS AND STABALIZES WTIH REST. HE IS ON THE AIRVO 25L, CURRENTLY DOWN TO 50% FIO2. HES BEEN NAPPING FOR THE MAJORITY OF THE AFTERNOON. HES DENIED CP, PAIN IN GENERAL, SOB, NAUSEA, AND SOB AT REST. HE HAS BEEN STANDING UP - JUST NEEDING HELP WITH MANAGING THE CHORDS AND LINES HE MOVES AROUND. HE WAS ABLE TO SIT IN THE CHAIR FOR A FEW HOURS FOR BREAKFAST. HE SHAVED TODAY. HE HAD A BM, AND HAD ADEQUATE URINE OUTPUT. STABLE VITALS, SINUS RHYTHM. BED LOW AND LOCKED. CALL LIGHT WITHIN REACH.
--- NOTE | 2019-11-21 19:00 | NUR ---
ASSUMED CARE OF PATIENT. PATIENT SITTING IN CHAIR, FINISHING DINNER. NO COMPLAINTS AT THIS TIME. CONTINUE AIRBORNE ISOLATION AND CURRENT POC. CALL HENRIQUEZ WITHIN REACH.
[2019-11-22 03:30] LABS: BASOPHILS ABSOLUTE AUTO 0.01 K/mm3 (0.00-0.23); BASOPHILS PERCENT AUTO 0 % (0-2); EOSINOPHILS ABSOLUTE AUTO 0.04 K/mm3 (0.00-0.68); EOSINOPHILS PERCENT AUTO 0 % (0-6); Hematocrit 37.3 % (37.0-53.0); Hemoglobin 12.3 g/dL (13.5-17.5); IMMATURE GRAN ABSOLUTE AUTO 0.14 K/mm3 (0.00-0.10); IMMATURE GRAN PERCENT AUTO 1 % (0-1); LYMPHOCYTES ABSOLUTE AUTO 0.57 K/mm3 (0.84-5.20); LYMPHOCYTES PERCENT AUTO 6 % (21-46); MONOCYTES ABSOLUTE AUTO 0.57 K/mm3 (0.16-1.47); MONOCYTES PERCENT AUTO 6 % (4-13); Mean Corpuscular Volume 85 fL (80-100); Mean Platelet Volume 9.2 fL (9.1-12.4); NEUTROPHILS ABSOLUTE AUTO 8.61 K/mm3 (1.96-9.15); NEUTROPHILS PERCENT AUTO 87 % (41-73); Platelet Count 365 K/mm3 (150-400); RDW Standard Deviation 40.4 fL (35.1-46.3); White Blood Cell Count 9.94 K/mm3 (4.00-11.30)
[2019-11-22 03:48] LABS: Alanine Aminotransfer (ALT/SGP 68 U/L (12-78); Albumin/Globulin Ratio 0.5 (0.8-1.8); Alk Phos 47 U/L (50-136); Anion Gap 6 mmol/L (6-16); Aspartate Aminotrans (AST/SGOT 25 U/L (12-37); Bilirubin, Total 0.4 mg/dL (0.1-1.0); Blood Urea Nitrogen 43 mg/dL (8-24); Bun/Creatinine Ratio 35.2 (12.0-20.0); CO2, Blood 22 mmol/L (21-32); Calcium, Blood 8.3 mg/dL (8.5-10.1); Chloride, Blood 111 mmol/L (98-108); Creatinine, Blood 1.22 mg/dL (0.60-1.20); Globulin, Blood 3.9 g/dL (2.2-4.0); Glomerular Filtration Rate >60 (60-); Glucose, Blood 118 mg/dL (70-99); Magnesium, Blood 2.2 mg/dL (1.6-2.4); Potassium, Blood 4.3 mmol/L (3.5-5.5); Sodium, Blood 139 mmol/L (136-145); Total Protein, Blood 5.9 g/dL (6.4-8.2)
--- NOTE | 2019-11-22 05:44 | NUR ---
PATIENT'S SATS DROP INTO THE HIGH 70'S - LOW 80'S WITH MOVING AROUND IN BED OR USING THE URINAL WITH RECOVERY BACK TO LOW 90'S WITHIN A FEW MINUTES. THIS AM, PATIENT'S SATS NOT RECOVERING, STAYING LOW 80'S. AIRVO FIO2 INCREASED TO 50% WITH FLOW REMAINING AT 25L/MIN. UPDATED RT REGARDING ABOVE.
--- NOTE | 2019-11-22 06:14 | NUR ---
SHIFT SUMMARY: PATIENT AWAKE MOST OF THE NIGHT, SLEEPING ONLY A FEW HOURS. PATIENT DENIES PAIN OR SOB. AIRVO INCREASED THIS AM TO 25L/MIN, FIO2 50% TO KEEP SATS 84% AND GREATER. HR AND BP STABLE. PATIENT VOIDING CLEAR, YELLOW URINE IN URINAL, ADEQUATE AMOUNTS. CONTINUE CURRENT POC.
--- NOTE | 2019-11-22 10:13 | NUR ---
ASSUMED CARE: REPORT RECEIVED FROM ZAK Helms RN. ASSUMED CARE OF THIS PT AT APPROX 0700. ON ASSESSMENT, THE PT IS RESTING QUIETLY. HE AWAKENS & IS USING CALL LIGHT APPROPRIATELY TO REQUEST ASSISTANCE. PT VOIDING W/O DIFFICULTY USING URINAL INDEPENDENTLY AT BEDSIDE. HE IS RELATIVELY INDEPENDENT W/ CARE IN THE ROOM BUT DOES NEED REMINDERS TO TAKE RECOVERY BREATHS AFTER EXERTION. THE PT's O2 SATS > 84% ON AVG WHICH IS GOAL. DESATS NOTED TO 72% W/ EXERTION & PT DOES HAVE PROLONGED RECOVERY TIME OF 5-10 MINS FOR SATS TO RECOVER > 84%. MONITOR SHOWS SB-SR W/ HR 50-70s. BP STABLE. PT HAS NO GI/ COMPLAINTS. SKIN CONDITION OVERALL CDI. WILL CONTINUE TO MONITOR & UPDATE NEEDED.
--- NOTE | 2019-11-22 18:00 | NUR ---
SHIFT SUMMARY: NO ACUTE CHANGES SINCE ASSUMPTION OF CARE. THE PT REMAINS A&O, PLEASANT & COOPERATIVE. REQUIRING MINIMAL ASSIST FOR CORD/LINE MANAGEMENT DURING TRANSFERS IN ROOM & ADLs. HE CONTINUES ON AIRVO W/ AT 25 L/MIN, TITRATED BETWEEN 40-60% FIO2 NEEDED FOR EXERTION & RECOVERY. MONITOR SHOWS SR-SB W/ HR 50-70s, BP STABLE. PT HAS NO GI/ COMPLAINTS. SKIN OVERALL CDI. WILL CONTINUE TO MONITOR & REPORT OFF TO ONCOMING RN.
--- NOTE | 2019-11-22 20:00 | NUR ---
ASSUMED CARE OF PATIENT AT 1915. REPORT RECEIVED. PT PRESENTS IN ROOM. COVID 19 ISOLATION. PT ALERT AND ORIENTED. PLEASANT AND COOPERATIVE WITH CARE AND ASSESSMENT. DENIES COMPLAINTS OF DYSPNEA. AIRVO OXYGEN BEING DELIVERED. MAINTAINING > 90 PERCENT SATURATIONS. WILL REVIEW CHART AND PLAN OF CARE FOR THIS PT.
--- NOTE | 2019-11-23 | NUR ---
PT STANDS AT SIDE OF BED TO URINATE. DESATURATES TO UPPER 70 PERCENTS. PT RECOVERS REALITIVELY QUICK ON HIS OWN. OF NOTE: WHEN PT ASLEEP HE HAS A SLEEP APNEA TYPE RESPIRATORY PATTERN. DID INCREASE FIO2 TO 50 PERCENT WITH 25 LITER FLOW PER AIRVO. PT HAS BEEN ABLE TO MOVE ABOUT BED ON HIS OWN. WILL CONTINUE TO MONITOR.
[2019-11-23 03:29] LABS: BASOPHILS ABSOLUTE AUTO 0.01 K/mm3 (0.00-0.23); BASOPHILS PERCENT AUTO 0 % (0-2); EOSINOPHILS ABSOLUTE AUTO 0.01 K/mm3 (0.00-0.68); EOSINOPHILS PERCENT AUTO 0 % (0-6); Hematocrit 38.9 % (37.0-53.0); Hemoglobin 12.8 g/dL (13.5-17.5); IMMATURE GRAN ABSOLUTE AUTO 0.14 K/mm3 (0.00-0.10); IMMATURE GRAN PERCENT AUTO 1 % (0-1); LYMPHOCYTES ABSOLUTE AUTO 0.66 K/mm3 (0.84-5.20); LYMPHOCYTES PERCENT AUTO 6 % (21-46); MONOCYTES ABSOLUTE AUTO 0.63 K/mm3 (0.16-1.47); MONOCYTES PERCENT AUTO 6 % (4-13); Mean Corpuscular HGB 27.9 pg (26.0-34.0); Mean Corpuscular HGB Conc 32.9 g/dL (31.5-36.5); Mean Corpuscular Volume 85 fL (80-100); Mean Platelet Volume 8.9 fL (9.1-12.4); NEUTROPHILS ABSOLUTE AUTO 9.84 K/mm3 (1.96-9.15); NEUTROPHILS PERCENT AUTO 87 % (41-73); Platelet Count 388 K/mm3 (150-400); RDW Standard Deviation 40.2 fL (35.1-46.3); Red Blood Cell Count 4.58 M/mm3 (4.30-5.90); White Blood Cell Count 11.29 K/mm3 (4.00-11.30)
[2019-11-23 03:48] LABS: Bun/Creatinine Ratio 31.5 (12.0-20.0); Creatinine, Blood 1.27 mg/dL (0.60-1.20); Potassium, Blood 4.5 mmol/L (3.5-5.5)
--- NOTE | 2019-11-23 06:30 | NUR ---
PT CONTINUES WITH DESATURATIONS TO 80 %'S WITH EXERTION WHILE STANDING AT BEDSIDE TO VOID. HAS MAINTAINED O2 SATURATIONS >88 PERCENT WITH AIRVO 25 LITERS WITH 50 PERCENT FIO2. WILL CONTINUE TO MONITOR PT, AND WILL REPORT OFF TO ONCOMING RN.
--- NOTE | 2019-11-23 08:00 | NUR ---
ASSUMED CARE REPORT RECIEVED. PT IS SITTING UP IN BED AWAKE, ALERT, AND ORIENTED. PT ANSWERS QUESTIONS APPROPRIATELY. VITAL SIGNS STABLE AT THIS TIME. PT ON AIRVO AT 25L, FIO2 47%. PT DENIES SOB AT REST, BUT STATES FEELS SOB WHEN UP TO VOID. IV SALINE LOCKED. PT USING URINAL AT BEDSIDE INDEPENDENTLY. PT REPOSITIONS SELF IN BED INDEPENDENTLY. NO FAMILY AT BEDSIDE. WILL CONTINUE TO MONITOR.
--- NOTE | 2019-11-23 18:12 | NUR ---
SHIFT SUMMARY NO ACUTE CHANGES THIS SHIFT. PT HAS REMAINED ALERT, ORIENTED, AND PLEASANT. PT VITAL SIGNS HAVE REMAINED STABLE. PT REMAINS ON AIRVO AT 25L, FIO2 50%. PT HAS DENIED SOB THROUGHOUT THE DAY. PT HAS BEEN INDEPENDENT IN THE ROOM. PT UP TO VOID WITH URINAL INDEPENDENTLY. PT SITTING UP IN CHAIR AT BEDSIDE THROUGHOUT THE AFTERNOON. IV SALINE LOCKED. WILL CONTINUE TO MONITOR AND REPORT OFF TO ONCOMING RN.
--- NOTE | 2019-11-24 01:32 | NUR ---
ASSUMPTION OF CARE: REPORT RECIEVED FROM JEWEL RN, PTIENT RESTING COMFORTABLY IN BED. SKIN C/D/I, AIRVO AT 50% WITH SATURATION AT 92%. PATIENT ALERT AND RECEPTIVE, VSS, BED LOW AND LOCKED, PATIENT MOVING SELF FREQUENTLY.
--- NOTE | 2019-11-24 05:07 | NUR ---
SHIFT SUMMARY: PATIENT SLEPT WELL THIS SHIFT, DESATURATED INTO THE MID 80'S WITH MOVMENT BUT REMAINED AROUND 92% O2 SATURATION WHEN SLEEPING. VSS, NO ISSUES NOTED, CALL LIGHT WITHIN REACH AND USED APPROPRIATLY. BED LOW AND LOCKED AND PATIENT COMPLIANT WITH CARE.
--- NOTE | 2019-11-24 09:52 | NUR ---
AM NOTE... ASSUMED CARE OF PT APROX 0700, PT IS A&Ox4 AND IND IN THE ROOM. PT IS ON AIRVO AT 25L O2 AND 58%FIO2 WITH O2 SATS 88-94% AT REST, PT DROPS DOWN TO THE 70'S WITH ACTIVITY AND RECOVERS SLOWLY, PT IS GOOD ABOUT PURSED LIP BREATHING DURING THESE TIMES. PT STATES THAT HE FEELS LIKE HIS TOLERANCE IS IMPROVING SLIGHTLY FROM YESTERDAY. OTHER VS STABLE AT THIS TIME. PT WAS UP IN THE ROOM WALKING TO THE TOILET AND USING THE URINAL TO VOID. L/S CLEAR T/O DIM IN THE BASES, RR EVEN AND UNLABORED AT REST IN THE 20'S. BT PRESENT AND NORMOACTIVE, ABD SOFT AND NONTENDER TO PALP. NO EDEMA NOTED ON ASSESSMENT. CALL LIGHT IN REACH WILL CONTINUE TO MONITOR.
[2019-11-24 13:12] LABS: Vancomycin, Trough 7.3 ug/mL (5.0-10.0)
--- NOTE | 2019-11-24 17:51 | NUR ---
SHIFT SUMMARY, NO ACUTE NEGATIVE CHANGES NOTED THIS SHIFT. PT HAS BEEN ON AIRVO AT 30LNC AND 55% FIO2 WITH O2 SATS >90%. SATS DROP DOWN TO HIGH 70'S LOW 80'S WITH ACTIVITY AND PT SEEMS TO RECOVER A LITTLE EASIER THIS EVENING THAN HE DID THIS AM. PT'S OTHER VS STABLE T/O SHIFT. PT'S DAUGHTER HAS BEEN UPDATED THIS SHIFT ON PT'S CONDITION AND PLAN OF CARE. PT HAS BEEN UP IN THE ROOM INDEPENDENTLY, WALKING AROUND AND USING THE TOILET. PT HAD LG BM THIS SHIFT. PT'S DIET WAS CHANGED TO REGULAR TODAY IN HOPES THE PT WILL EAT MORE. CALL LIGHT IN REACH WILL CONTINUE TO MONITOR UNTIL REPORT IS GIVEN TO ONCOMING RN.
--- NOTE | 2019-11-24 19:00 | NUR ---
ASSUMED CARE OF PATIENT: PATIENT SITTING IN CHAIR; NO ACUTE DISTRESS NOTED. AIRVO AT 30L/MIN, FIO2 55% WITH SATS 88%. NO C/O PAIN. PATIENT STATES HE WOULD LIKE TO SIT IN THE CHAIR UNTIL LATER THIS EVENING; STATES HE WILL CALL FOR ASSISTANCE BEFORE GOING BACK TO BED. CALL HENRIQUEZ WITHIN REACH.
--- NOTE | 2019-11-25 06:22 | NUR ---
SHIFT SUMMARY: PATIENT SLEPT MOST OF THE NIGHT. PATIENT SWITCHED AT 2330 FROM AIRVO TO CPAP 8, 9L/MIN. SATS >92% ALL NIGHT. NO C/O PAIN OR SOB. PATIENT STATES HE FEELS HE IS READY TO LEAVE THE HOSPITAL SOON. PORTABLE CXR DONE THIS AM. CONTINUE CURRENT POC.
--- NOTE | 2019-11-25 11:40 | NUR ---
Assumed care of pt at 0700. Bedside report received from Trinh HURD. Pt PCU status. Pt A&O x 4. Answers questions, follows commands, verbalizes needs. Pt independent in room. On initial assessment, pt wearing AirVo with 30 LPM and 50% FiO2. SpO2 90% or greater. Sinus bradycardia per monitor. Metoprolol held. Will continue to reassess. Pt states concern that his bed controls are not working. Bed changed out for patient. Pt stated concern that he has not had a menu for meal choices. This RN arranged for dietary to call and obtain pt's meal preferences for remainder of the day. Dry Can TenderJanessa, notified that pt has been receiving meals with foods he does not prefer. Dry Can Tender obtained likes and dislikes. Dr De Anda in unit, states he will not be seeing patient until pulmonolgy is no longer following. Dr Pressley in to see pt. No new orders at this time. This RN provided update to pt's daughters, as they called unit to ask about progress.
--- NOTE | 2019-11-25 17:29 | NUR ---
No acute changes since intial assessment. Pt has been independently moving from chair to bed. Pt is in chair this time, states he has been up for about 3 hours. States he feels like his breathing is better when he is in bed. Pt states satisfaction with meals, since verbally filling out menu this morning. Pt remains on AirVO with 30 LPM and 50% FiO2. SpO2 90-92% at this time. SB-SR per monitor with HR ranging from 55-62. Will continue to closely monitor until care handoff and bedside report with oncoming RN.
--- NOTE | 2019-11-25 19:00 | NUR ---
ASSUMED CARE OF PATIENT. RECIEVED REPORT FROM OFFGOING RN. RT CURRENTLY IN THE ROOM PLANNING FOR PATIENT TO GO BACK ON CPAP. PATIENT DENIES PAIN OR SOB; STATES HE IS FEELING BETTER AND JUST WANTS TO GET A GOOD NIGHT'S SLEEP. BED IN LOW POSITION; CALL HENRIQUEZ WITHIN REACH.
[2019-11-26 03:42] LABS: BASOPHILS ABSOLUTE AUTO 0.01 K/mm3 (0.00-0.23); BASOPHILS PERCENT AUTO 0 % (0-2); EOSINOPHILS ABSOLUTE AUTO 0.16 K/mm3 (0.00-0.68); EOSINOPHILS PERCENT AUTO 2 % (0-6); Hematocrit 39.4 % (37.0-53.0); Hemoglobin 13.1 g/dL (13.5-17.5); IMMATURE GRAN ABSOLUTE AUTO 0.11 K/mm3 (0.00-0.10); IMMATURE GRAN PERCENT AUTO 1 % (0-1); LYMPHOCYTES ABSOLUTE AUTO 0.78 K/mm3 (0.84-5.20); LYMPHOCYTES PERCENT AUTO 9 % (21-46); MONOCYTES ABSOLUTE AUTO 0.64 K/mm3 (0.16-1.47); MONOCYTES PERCENT AUTO 7 % (4-13); Mean Corpuscular HGB 28.1 pg (26.0-34.0); Mean Corpuscular HGB Conc 33.2 g/dL (31.5-36.5); Mean Corpuscular Volume 85 fL (80-100); Mean Platelet Volume 9.4 fL (9.1-12.4); NEUTROPHILS ABSOLUTE AUTO 7.45 K/mm3 (1.96-9.15); NEUTROPHILS PERCENT AUTO 82 % (41-73); Platelet Count 351 K/mm3 (150-400); RDW Coefficient Variation 12.9 % (11.7-14.2); RDW Standard Deviation 39.8 fL (35.1-46.3); Red Blood Cell Count 4.66 M/mm3 (4.30-5.90); White Blood Cell Count 9.15 K/mm3 (4.00-11.30)
[2019-11-26 03:59] LABS: Bun/Creatinine Ratio 29.8 (12.0-20.0); Calcium, Blood 8.5 mg/dL (8.5-10.1); Creatinine, Blood 1.31 mg/dL (0.60-1.20); Potassium, Blood 4.4 mmol/L (3.5-5.5)
--- NOTE | 2019-11-26 06:02 | NUR ---
SHIFT SUMMARY: PATIENT SLEPT MOST OF THE NIGHT USING CPAP WITH RATE OF 7L/MIN. PATIENT DENIES PAIN OR SOB. PATIENT UP TO VOID USING URINAL WITH SATS DROPPING TO LOW 80'S. VSS. BED LOW IN LOCKED POSITION WITH CALL HENRIQUEZ IN REACH. CONTINUE CURRENT POC.
--- NOTE | 2019-11-26 10:35 | NUR ---
Assumed care of pt at 0700. Report received from Trinh HURD. Pt A&O x 4. Answers questions. Follows commands. Verbalizes needs. Pt mobilizing in room independently. Pt on AirVo with 30 LPM and 50% FiO2. Lungs clear, dim in bases. Sinus bradycardia per monitor. Metoprolol held. Bed in lowest position. Call light in reach. Pt denies need at this time.
--- NOTE | 2019-11-26 18:15 | NUR ---
No acute changes to initial assessment. Pt sat up in chair for about 3 hours today. Discussed right side-lying and self-proning. Pt continues to state disintrest in self-proning but states he tries to lay on his right side when he is in bed. Pt reports consistent use of incentive spirometer. Pt remains on AirVO with 30 LPM and 50% FiO2. No events per heart monitor. Will continue to closely monitor until care handoff and bedside report with oncoming RN.
--- NOTE | 2019-11-26 20:19 | NUR ---
ASSUMED CARE RECEIVED REPORT FROM VANNESSA CLAY. PT IS IN CHAIR, ALERT AND ORIENTED X 4. HE IS ON AIRVO 30L, 50% FIO2. SAT'ING AT 90%. VITALS ARE STABLE. HE DENIES PAIN, NAUSEA, AND SOB AT REST. HE STATES HE FEELS HE IS GETTING BETTER. HE HAS A DRY, NONPRODUCTIVE COUGH. HE IS INDEPENDENT IN ROOM AND USES CALL LIGHT APPROPRIATELY. CALL LIGHT WITHIN REACH.
--- NOTE | 2019-11-27 05:36 | NUR ---
SHIFT SUMMARY NO MAJOR EVENTS OVERNIGHT. PT SLEPT THROUGH MAJORITY OF NIGHT, ONLY TO WAKE UP AND SIT UP AND URINATE A FEW TIMES. SATS DROP TEMPORARILY INTO THE LOW 80'S DURING THIS TIME, BUT WITH REST THE PT RECOVERS. AT THE BEGINING OF SHIFT PT WAS ON AIRVO 30L, 50% FIO2, BUT HAS BEEN ON THE CPAP ALL NIGHT. HE IS ASYMPTOMATIC, ASIDE FOR A DRY NONPRODUCTIVE COUGH WHEN AWAKE, AND DYSPNEA WITH EXERTION. HE HAS DENIED PAIN, NAUSEA, AND SOB AT REST. CALL LIGHT WITHIN REACH AT ALL TIMES. BED LOW AND LOCKED. PT IS INDEPENDENT IN ROOM.
--- NOTE | 2019-11-27 08:43 | NUR ---
PT RESTING IN BED. DENIES PAIN AND N/V. GETS SOB WITH EXERTION AND SPO2 WILL DIP DOWN TO LOW 80'S WITH EXERTION. PT IS INDEP AT BEDSIDE TO USE URINAL. ON AIRVO 30L FIO2 50% WHILE AWAKE. DENIES ANY SPUTUM. NO SIGN OF DISTRESS. NO REQUESTS, EATING BREAKFAST.
--- NOTE | 2019-11-27 18:01 | NUR ---
SUMMARY PT HAS NOT HAD ANY CHANGES TODAY. INDEP TO CHAIR THEN BACK TO BED. PT WILL SELF PRONE BY LEANING OVER BEDSIDE TABLE WHILE IN CHAIR. GETS SOB WITH EXERTION BUT DOES WELL RECOVERING ON AIRVO. SPO2 DROPS TO 80% WITH EXERTION. PT IS A DIFFICULT IV START. MULTIPLE ATTEMPTS BY 2 DIFFERENT RN'S WITH USE OF US. EVEN EVALUATED FOR POWERGLIDE PLACEMENT BUT NOT ABLE TO OBTAIN. HAD TO LEAVE 22G IV THAT IS IN L WRIST. NO SIGN OF DISTRESS, NO REQUESTS.
--- NOTE | 2019-11-27 20:00 | NUR ---
PT RESTING QUIETLY AND RECLINING IN BED, DENIES N/V, DENIES CP/PRESSURE, STATES THAT BREATHING FEELS STABLE AND THAT HE HAS BEEN ABLE TO TOLERATE INCREASED PERIODS OF BEING UP IN THE CHAIR. HE IS SPEAKING IN FULL SENTENCES AND SATS MAINTAIN LOW 90S THROUGHOUT ASSESSMENT, AIRVO IN USE AT 30 L/MIN AND FIO2 50%. PT STATES THAT HE FEELS LIKE THE CPAP USE AT HS IS HELPING. LUNGS ARE COARSE BILAT MID TO BASES AND HE STATES THAT HE DOES FEEL LIKE "STUFF IS LOOSENING UP" BUT THAT HE DOES NOT BELIEVE THAT HE HAS HAD A PRODUCTIVE COUGH TODAY. HRR, SINUS ON MONITOR, RATE LOW 60S AT REST, SBP NOTED 97, NORVASC HELD PER ORDERS, PULSES ARE FULL X 4 EXTREMITIES, NO EDEMA IS NOTED, BRISK CAP REFILL. NORMOACTIVE BOWEL TONES ARE PRESENT, ABD IS SOFT, NONTENDER TO PALP. PT HAS 125 ML CLEAR DARK YELLOW URINE PRESENT IN URINAL AT BEDSIDE. IV ACCESS IS NOTED DUE FOR ROUTINE IV ROTATION HOWEVER UNABLE TO LOCATE SUITABLE VEIN PER DAY SHIFT RN, MEDICAL OFFICE TECHNOLOGIST IS AWARE, SITE FLUSHES WELL, NO REDNESS, SWELLING, OR DRAINAGE IS NOTED, DRESSING CDI.
--- NOTE | 2019-11-28 05:20 | NUR ---
PT HAS RESTED QUIETLY THROUGHOUT SHIFT. SATS MAINTAINED LOW 90S WITH AIRVO WHILE AWAKE AT 30 L/MIN AND FIO2 OF 50%, CPAP WITH SLEEP WITH OXYGEN AT 7 L/MIN BLEED IN, LUNG SOUNDS CONTINUE COARSE IN BASES, SATS DO DECREASE TO UPPER 80S WITH INCREASES IN ACTIVITY HOWEVER RECOVER QUICKLY WHEN HE RETURNS TO REST. HRR, CONTINUES IN SINUS RHYTHM IN THE 60S THROUGHOUT SHIFT, NORVASC WAS HELD AT HS FOR SBP OF 97, PRESSURES IMPROVED THROUGHOUT SHIFT. PT REMAINS AFEBRILE THROUGHOUT NOC.
--- NOTE | 2019-11-28 08:12 | NUR ---
PT UP TO CHAIR INDEP THIS AM TO EAT BREAKFAST. SPO2 DIPS TO 86% BUT RECOVERS QUICKLY ON AIRVO 30L FIO2 50%. DENIES PAIN AND N/V. GETS SOB WITH EXERTION BUT PT REMAINS CALM AND IS ABLE TO REST AND RECOVER WITHOUT PANIC. NO SIGN OF DISTRESS. NO REQUESTS.
--- NOTE | 2019-11-28 18:27 | NUR ---
SUMMARY PT DID WELL T/O THE DAY. NO ACUTE CHANGES IN CONDITION. AFTER DINNER TONIGHT PT WAS SWITCHED TO HFNC AT 15L TO SEE IF HE WOULD TOLERATE IT PER DR. MATTHEW'S ORDERS. AFTER STAYING WITH PT FOR AWHILE HE DID NOT DESAT ON HFNC. TITRATED IT DOWN TO 10L. PT DOES WELL WITH OXYGEN DEMAND UNTIL HE EXERTS HIMSELF. WITH EXERTION PT WILL DROP DOWN TO 80-83%. DOES RECOVER QUICKLY. ENCOURAGED PT TO USE INCENTIVE SPIROMETER SEVERAL TIMES A DAY AND TO KEEP SELF PRONING. PT IS COMPLIANT. NO OTHER CHANGES. INDEP IN ROOM. NO REQUESTS.
--- NOTE | 2019-11-28 20:30 | NUR ---
ASSESSMENT PT RESTING QUIETLY RECLINING IN BED, SPO2 IS NOTED AT 95%, DECREASES TO 93% WITH CONVERSATION. PT IS SPEAKING IN FULL SENTENCES, DENIES CP/PRESSURE, REPORTS THAT BREATHING FEELS IMPROVED FROM YESTERDAY, NO VISIBLE INCREASED WORK OF BREATHING IS NOTED AT REST, HE REPORTS THAT HE HAS BEEN USING INCENTIVE SPIROMETER WELL TODAY, HIGH FLOW NASAL CANNULA IN PLACE WITH OXYGEN AT 10 L/MIN, LUNGS WITH IMPROVED AIR FLOW FROM 0400 ASSESSMENT, FINE CRACKLES ARE NOW NOTED TO RIGHT MIDDLE LOBE, COARSE CRACKLES CONTINUE TO BILAT BASES. HRR, SINUS ON MONITOR, RATE 60S, PRESSURE IS STABLE, BRISK CAP REFILL, SKIN IS PWD, NO EDEMA IS NOTED, FULL PULSES X 4 EXTREMITIES. IV ACCESS CONTINUES TO LEFT WRIST, PT STATES THAT MULTIPLE RNS HAVE ASSESSED FOR ROUTINE IV ROTATION SITE AND UNABLE TO LOCATE A SUITABLE VEIN EVEN WITH ULTRASOUND, SITE REMAINS WNL AT THIS TIME, FLUSHES WELL, NO REDNESS, SWELLING, OR DRAINAGE IS NOTED, WILL CONT TO MONITOR.
--- NOTE | 2019-11-29 06:27 | NUR ---
PT RESTS WELL THROUGHOUT SHIFT, HE REPORTS THAT HE IS SLEEPING WELL WHEN AROUSED FOR ASSESSMENTS AND VITAL SIGNS. SPO2 HAS IMPROVED THIS SHIFT TO MID TO UPPER 90S USING CPAP WITH OXYGEN BLEED IN OF 7 L/MIN, HE DOES DESAT TO HIGH 80S WITH INCREASE IN ACTIVITY BUT QUICKLY RECOVERS, LUNGS WITH IMPROVED AIR MOVEMENT AUDIBLE TO AUSCULTATION HOWEVER COARSE CRACKLES REMAIN PRESENT IN BASES BILAT. HRR, CONTINUES IN SINUS RHYTHM THROUGHOUT NOC, PRESSURES STABLE. PT STATES NO COMPLAINTS THIS SHIFT, HAS BEEN PLANNING FOR RETURN DRIVE TO [place].
--- NOTE | 2019-11-29 11:34 | NUR ---
am note. PT IS A/O COOP. AND RESP. STATUS IS IMPROVING PT OF O2 OR 2-4 MINUTES AND ONLY DOWN TO 84% AND O2 AT 10L HIGH FLOW NC STARTED SATS IMPORVED TO 91+ w/o SIGNIFICANT DISTRESS. PT IS VOIDING AND UP IN ROOM INDEPENDENTLY. PT STATES HE IS TOLERATING CPAP WELL.
--- NOTE | 2019-11-29 18:00 | NUR ---
PT HAS BEEN UP AND DOWN TO CHAIR AND BED. 1500ML I.S. AND FREQUENTLY USING . VSS. REMAINS ON 10 L NC WITH GOOD SATS NOTED AND DENIES RESP. DISTRESS.
--- NOTE | 2019-11-29 20:00 | NUR ---
ASSESSMENT PT IS STANDING AT BEDSIDE USING URINAL, DENIES DIZZINESS/VERTIGO, STATES THAT HE DOES FEEL SOMEWHAT SHORT OF BREATH BUT IMPROVED FROM YESTERDAY, CONTINUES TO FEEL LIKE CONGESTION IN CHEST IS LOOSENING. SATS ARE MAINTAINING AT 90% WITH STANDING AT BEDSIDE AND OXYGEN VIA HIGH FLOW NASAL CANNULA AT 5.5 L/MIN AT THIS TIME, PT IS SPEAKING IN FULL SENTENCES WITHOUT VISIBLE INCREASED WORK OF BREATHING, LUNGS ARE CLEAR BILAT UPPER LOBES, MID TO BASES ARE DIMINISHED, FINE CRACKLES TO BILAT BASES, SATS RETURN TO 95-96% ON PT'S RETURN TO RECLINING IN BED. HRR, SINUS ON MONITOR, RATE 60S, PRESSURE STABLE, BRISK CAP REFILL, FULL PULSES X 4 EXTREMITIES, NO EDEMA IS NOTED. NORMOACTIVE BOWEL TONES ARE PRESENT, ABD SOFT, NONTENDER TO PALP. VOIDS CLEAR YELLOW URINE WITHOUT REPORTED DIFFICULTY.
--- NOTE | 2019-11-30 05:55 | NUR ---
PT RESTS QUIETLY THROUGHOUT SHIFT, REPORTS THAT HE HAS BEEN SLEEPING WELL WITH CPAP USE. SATS MAINTAIN GREATER THAN 90% WITH OXYGEN VIA HIGH FLOW NASAL CANNULA AT 5.5 L/MIN OR CPAP WITH 5 L/MIN OXYGEN BLEED IN, LUNG SOUNDS CONTINUE DIM IN BASES WITH FINE CRACKLES PRESENT, BREATHING CONTINUES TO FEEL TIGHT COMPARED TO BASELINE HOWEVER HE REPORTS THAT IT DOES FEEL IMPROVED FROM YESTERDAY. CONTINUES IN SINUS RHYTHM, RATE HIGH 50S TO LOW 60S, PRESSURES MAINTAINING STABLE, SKIN REMAINS PWD WITH BRISK CAP REFILL AND HE CONTINUES WITHOUT EDEMA.
--- NOTE | 2019-11-30 13:24 | NUR ---
LATE AM NOTE... PT WAS CHANGED TO 4L NC FROM CPAP WHICH HE WAS OFF FOR 3-4 MINUTES. SATS WENT DOWN TO MID 80 RANGE AND RECOVERED WELL TO 92-95 RANGE ON THE 4L NC. PT CONT. TO TOLERATE THIS SETTING.
--- NOTE | 2019-11-30 18:18 | NUR ---
PT IS CURRENTLY CHANGED TO 3 1/2L. RR AND SATS ARE GOOD NOTED AND CURRENT SPO2 IS 91% WITH PT SETTING UP EATING W/O DISTRESS. PT DENIES PAIN OR DISTRESS CURRENTLY. PT HAS BEEN VOIDING AND DOES VERVBALIZE SOME SL FATIGUE WITH P.T. EVAL AND WORKOUT THIS SHIFT.
--- NOTE | 2019-12-01 06:48 | NUR ---
SHIFT SUMMARY PT HAD GREAT EVENING. ALERT AND ORIENTED. PT INDEPENDENT IN ROOM. PT VSS. SATS >92% ON CPAP/3.5L PER NC. PT ABLE TO DO MOST ADLS WITH NO ASSISTANCE. SATS DROP TO 87-89% BUT PT RECOVERS QUICKLY. PT HAS 22G TO LEFT HAND/WRIST AREA. SITE WNL, DRESSING CHANGED. LUNG SOUNDS CLEAR TO UPPER ZHANG DIMINISHED TO LOWER ZHANG. ABD SOFT AND NONTENDER, BM 8/18. PT VOIDS WITH URINAL. MOVES ALL EXTREMITIES INDEPENDENTLY. NEEDS DC PLANNING TO START. WILL REPORT TO ONCOMING SHIFT.
--- NOTE | 2019-12-01 18:32 | NUR ---
SHIFT SUMMARY PT IS ALERT AND ORIENT X4, ABLE TO EXPRESSE WISHES. PT HAS BEEN ON 3.5L ON O2 ALL DAY WITH LING DROP IN SATS DURING ACTIVITY. HOME O2 EVAL COMPLETED BY RT IN PLANS OF DISCHARGING TOMORROW. [facility] ATTEMPTED TO COORDINATE OPTIONS FOR GETTING PT BACK TO [place]. PT HAD CONCERNS ABOUT O2 TANKS AND CONCENTRATER. CASE MANAGEMENT IS WORKING WITH [facility] FOR BEST OPTION. TELEMETRY HAS SHOWN PT IN SINUS RHYTHM/JEFFERY. OTHER VITALS HAVE REMAINED STABLE.
--- NOTE | 2019-12-02 06:15 | NUR ---
PATIENT ORIGINALLY ADMITED DUE TO SOB W/ COVID+. PLAN IS TO DISCHARGE IN THE MORNING ONCE THE STATUS OF THE PT'S HOME O2 IS RESOLVED BEFORE HE LEAVES. PATIENT DID WELL OVER NIGHT, NO CLINICAL CONCERNS AT THIS TIME.
[2019-12-02] MEDS ORDERED: HYDCHL25 PO (13:09)
--- NOTE | 2019-12-02 14:48 | NUR ---
DISCHARGE INSTRUCTIONS GONE OVER WITH PT. INSTRUCTED PT ON HOME O2 USE AND MEDICATIONS. PT STATED UNDERSTANDING. BELONGINGS GATHERED AND GIVEN TO PT. PT WAS ESCORTED OUT OF FACILITY ON HOME O2, VIA WHEELCHAIR TO WAITING FAMILY IN CAR.
== END 2019-12-02 14:30 | disposition home or self-care (01) | DRG 871 ==
LOC: ER 10:40 → PCU 10:41 → ICUW 15:03 → PCU 16:30 → ICUW 11-17 16:09
PROVIDERS: Emergency Medicine; Family Medicine; Internal Medicine; Internal Medicine Critical Care Medicine; Internal Medicine Infectious Disease; ADMIT Internal Medicine
PROC: 8E0ZXY6 Isolation (ICD-10-PCS; 2019-11-14)
PROC: 5A09557 Assistance with Respiratory Ventilation, Greater than 96 Consecutive Hours, Continuous Positive Airway Pressure (ICD-10-PCS; principal; 2019-11-17)
PROC: XW033E5 Introduction of Remdesivir Anti-infective into Peripheral Vein, Percutaneous Approach, New Technology Group 5 (ICD-10-PCS; 2019-11-17)
DX: A41.89 Other specified sepsis (principal); U07.1 COVID-19; J96.01 Acute respiratory failure with hypoxia; N17.0 Acute kidney failure with tubular necrosis; J12.89 Other viral pneumonia; K21.9 Gastro-esophageal reflux disease without esophagitis; I12.9 Hypertensive chronic kidney disease with stage 1 through stage 4 chronic kidney disease, or unspecified chronic kidney disease; E78.01 Familial hypercholesterolemia; G47.33 Obstructive sleep apnea (adult) (pediatric); I25.10 Atherosclerotic heart disease of native coronary artery without angina pectoris; E87.6 Hypokalemia; R65.20 Severe sepsis without septic shock; E78.5 Hyperlipidemia, unspecified; N18.3 Chronic kidney disease, stage 3 (moderate); T38.0X5A Adverse effect of glucocorticoids and synthetic analogues, initial encounter; Z95.5 Presence of coronary angioplasty implant and graft; Z79.82 Long term (current) use of aspirin; Z87.891 Personal history of nicotine dependence; I25.2 Old myocardial infarction
CPT/HCPCS: 36415; 36600; 71045; 80048; 80053; 80076; 80202; 81001; 82248; 82550; 82728; 82803; 83605; 83615; 83735; 84100; 84145; 84484; 85025; 85027; 85379; 85384; 85610; 85730; 86141; 87040; 87070; 87077; 87086; 87186; 87205; 87449; 93005; 93010; 94660; 94761; 96361; 96374; 97116; 97162; 97165; 97530; 97535; 99285-25; A9270; A9270-GY; J0360; J0696; J1100; J1650; J3370; J7030; J7050; J7120; U0002